=== PATIENT | male | born 1955 | race Caucasian/White ===

== ENCOUNTER 2017-01-05 10:08 | Inpatient (IN) | payer MEDICAID ==
[~2017-01-05] VITALS: Ht 172.7 cm; Wt 81.6 kg
[2017-01-05 11:08] LABS: BASOPHIL % 0.5 % (0-2); PLATELET COUNT 244 x10^3mcL (130-400); RED CELL DISTRIBUTION WIDTH 12.9 % (11.5-14.5)
[2017-01-05 11:15] LABS: CALCIUM 8.7 mg/dL (8.5-10.1); CARBON DIOXIDE 25.9 mmol/L (21-32); CHLORIDE SERUM 106 mmol/L (98-107); CREATININE SERUM 1.1 mg/dL (0.7-1.3); GFR1 > 60 mL/min; GLUCOSE SERUM 334 mg/dL (74-106); POTASSIUM SERUM 4.8 mmol/L (3.5-5.1); SODIUM SERUM 141 mmol/L (136-145)
[2017-01-05 11:20] LABS: ALKALINE PHOSPHATASE 240 U/L (46-116); ALT/SGPT 30 U/L (16-63); AST/SGOT 20 U/L (15-37); BILIRUBIN TOTAL 0.45 mg/dL (0.20-1.00); TOTAL PROTEIN, SERUM 7.5 g/dL (6.4-8.2)
[2017-01-05 11:21] LABS: ALBUMIN 3.1 g/dL (3.4-5.0)
[2017-01-05 12:58] LABS: MAGNESIUM 1.7 mg/dL (1.8-2.4); PHOSPHOROUS 3.2 mg/dL (2.5-4.9)
[2017-01-05 13:08] LABS: FREE T4 0.96 ng/dL (0.76-1.46); FREE THYROXINE INDEX 2.1 ug/dL (1.4-4.5); T3 TOTAL 0.86 ng/mL; T4(THYROXINE) 6.3 ug/dL (4.7-13.3)
[2017-01-05 13:36] VITALS: BP 144/77; BP 194/77
[2017-01-05 13:39] LABS: UA SPECIFIC GRAVITY 1.015 (1.005-1.035); microscopic required? YES; urine erythrocyte TRACE (NEGATIVE)
[2017-01-05 13:53] LABS: AMPHETAMINE QUAL UR NONE DETECTED (NEG <=1000)
[2017-01-05] MEDS ORDERED: LIPI20 PO (13:55)
[2017-01-05] MEDS ORDERED: ECO81 PO (13:56)
[2017-01-05] MEDS ORDERED: LOT10 PO (13:57)
[2017-01-05] MEDS ORDERED: GLUCOPHAGE1000 MG PO (13:59)
[2017-01-05] MEDS ORDERED: VITAMIN D PO (14:01)
[2017-01-05] MEDS ORDERED: LANTUS SOLOS100 U/M1 SC (14:02)
[2017-01-05] MEDS ORDERED: INSULIN (14:03)
[2017-01-05 15:55] VITALS: Ht 172.7 cm; Wt 81.6 kg
[2017-01-05] MEDS ORDERED: LANTUS SOLOS100 U/M1 SQ (16:01)
[2017-01-05 19:30] VITALS: BP 115/68
[2017-01-06 04:22] LABS: BASOPHIL % 0.3 % (0-2); PLATELET COUNT 219 x10^3mcL (130-400); RED CELL DISTRIBUTION WIDTH 12.9 % (11.5-14.5)
[2017-01-06 04:25] LABS: CALCIUM 8.8 mg/dL (8.5-10.1); CARBON DIOXIDE 26.9 mmol/L (21-32); CHLORIDE SERUM 104 mmol/L (98-107); GFR1 > 60 mL/min; GLUCOSE SERUM 220 mg/dL (74-106); MAGNESIUM 1.5 mg/dL (1.8-2.4); PHOSPHOROUS 3.4 mg/dL (2.5-4.9); POTASSIUM SERUM 4.9 mmol/L (3.5-5.1); SODIUM SERUM 137 mmol/L (136-145)
[2017-01-06 05:12] VITALS: BP 130/79
[2017-01-06 09:40] VITALS: BP 133/67; BP 138/70
[2017-01-06 13:17] VITALS: BP 141/74
[2017-01-06 17:50] VITALS: BP 159/87
[2017-01-06 21:16] VITALS: BP 129/70
[2017-01-07 05:02] VITALS: BP 117/71
[2017-01-07 10:06] VITALS: BP 134/83
[2017-01-07 14:23] VITALS: BP 140/71
[2017-01-07 17:55] VITALS: BP 153/76
[2017-01-07 20:49] VITALS: BP 131/74
[2017-01-08 05:24] VITALS: BP 133/76
[2017-01-08 06:22] LABS: BASOPHIL % 0.3 % (0-2); PLATELET COUNT 240 x10^3mcL (130-400)
[2017-01-08 06:23] LABS: CALCIUM 8.8 mg/dL (8.5-10.1); CARBON DIOXIDE 26.8 mmol/L (21-32); CHLORIDE SERUM 105 mmol/L (98-107); CREATININE SERUM 0.8 mg/dL (0.7-1.3); GFR1 > 60 mL/min; GLUCOSE SERUM 149 mg/dL (74-106); MAGNESIUM 1.5 mg/dL (1.8-2.4); POTASSIUM SERUM 4.2 mmol/L (3.5-5.1); SODIUM SERUM 140 mmol/L (136-145)
[2017-01-08 06:29] LABS: ALBUMIN 2.7 g/dL (3.4-5.0)
[2017-01-08 09:59] VITALS: BP 138/77
[2017-01-08 13:37] VITALS: BP 144/74
[2017-01-08 16:44] VITALS: BP 136/75
[2017-01-08 19:30] VITALS: BP 147/74
[2017-01-09 06:01] VITALS: BP 135/76
[2017-01-09 08:53] VITALS: BP 116/68
[2017-01-09 11:37] LABS: BASOPHIL % 0.7 % (0-2); PLATELET COUNT 238 x10^3mcL (130-400); RED CELL DISTRIBUTION WIDTH 13.2 % (11.5-14.5)
[2017-01-09 12:21] LABS: CALCIUM 8.5 mg/dL (8.5-10.1); CARBON DIOXIDE 29.1 mmol/L (21-32); CHLORIDE SERUM 104 mmol/L (98-107); CREATININE SERUM 0.8 mg/dL (0.7-1.3); GFR1 > 60 mL/min; GLUCOSE SERUM 139 mg/dL (74-106); POTASSIUM SERUM 4.5 mmol/L (3.5-5.1); SODIUM SERUM 139 mmol/L (136-145)
[2017-01-09 13:51] VITALS: BP 116/68
[2017-01-09 14:15] VITALS: BP 142/78
[2017-01-09] MEDS ORDERED: GLU10 PO (14:24)
[2017-01-09] MEDS ORDERED: COUMADIN7.5 MG PO (14:24)
== END 2017-01-09 17:00 | disposition home or self-care (01) | DRG 361 ==
LOC: ED 10:08 → MU 12:01 → DU 12:01
PROVIDERS: Emergency Medicine; Student in an Organized Health Care Education/Training Program; ADMIT Family Medicine
PROC: 0HBNXZZ Excision of Left Foot Skin, External Approach (ICD-10-PCS; principal; 2017-01-06)
PROC: 0JBR0ZZ Excision of Left Foot Subcutaneous Tissue and Fascia, Open Approach (ICD-10-PCS; principal; 2017-01-06)
DX: E11.621 Type 2 diabetes mellitus with foot ulcer (principal); L97.529 Non-pressure chronic ulcer of other part of left foot with unspecified severity; N17.0 Acute kidney failure with tubular necrosis; E43 Unspecified severe protein-calorie malnutrition; I82.412 Acute embolism and thrombosis of left femoral vein; L03.116 Cellulitis of left lower limb; E83.42 Hypomagnesemia; E11.65 Type 2 diabetes mellitus with hyperglycemia; E11.42 Type 2 diabetes mellitus with diabetic polyneuropathy; L84 Corns and callosities; M85.872 Other specified disorders of bone density and structure, left ankle and foot; E78.5 Hyperlipidemia, unspecified; D64.9 Anemia, unspecified; Z68.27 Body mass index [BMI] 27.0-27.9, adult; Z79.4 Long term (current) use of insulin; Z79.84 Long term (current) use of oral hypoglycemic drugs
CPT/HCPCS: 82962; 83880; 84439; 90715; 90732; J0295; J1644; J1815; J1885; J1956; J3475; J3490; J7030; Q0092

== ENCOUNTER 2017-09-25 18:09 | Inpatient (IN) | payer MEDICAID ==
[~2017-09-25] VITALS: Ht 172.7 cm; Wt 88.5 kg
[~2017-09-25 18:09] MED LIST: COUMADIN7.5 MG PO; ECO81 PO; GLU10 PO; GLUCOPHAGE1000 MG PO; INSULIN; LANTUS SOLOS100 U/M1 SC; LANTUS SOLOS100 U/M1 SQ; LIPI20 PO; LOT10 PO; VITAMIN D PO
[2017-09-25 19:01] LABS: BASOPHIL % 0.8 % (0-2); PLATELET COUNT 272 x10^3mcL (130-400)
[2017-09-25 19:09] LABS: CALCIUM 8.2 mg/dL (8.5-10.1); CARBON DIOXIDE 26.7 mmol/L (21-32); CHLORIDE SERUM 99 mmol/L (98-107); CREATININE SERUM 1.1 mg/dL (0.7-1.3); GFR1 > 60 mL/min; GLUCOSE SERUM 367 mg/dL (74-106); SODIUM SERUM 135 mmol/L (136-145)
[2017-09-25 19:13] LABS: ALKALINE PHOSPHATASE 178 U/L (46-116); ALT/SGPT 22 U/L (16-63); AMYLASE 31 U/L (25-115); AST/SGOT 13 U/L (15-37); BILIRUBIN TOTAL 0.4 mg/dL (0.20-1.00); CHOLESTEROL 173 mg/dL (<200); HDL CHOLESTEROL 37 mg/dL (40-60); LIPASE 107 IU/L (73-393); TOTAL PROTEIN, SERUM 7.2 g/dL (6.4-8.2)
[2017-09-25 20:50] LABS: CHOLESTEROL/HDL RATIO 4.6; MAGNESIUM 1.8 mg/dL (1.8-2.4); PHOSPHOROUS 3.6 mg/dL (2.5-4.9)
[2017-09-25 20:59] LABS: FREE T4 0.96 ng/dL (0.76-1.46); FREE THYROXINE INDEX 2.4 ug/dL (1.4-4.5); T4(THYROXINE) 6.9 ug/dL (4.7-13.3)
[2017-09-25 21:13] LABS: T3 TOTAL 0.73 ng/mL
[2017-09-25 21:41] VITALS: BP 146/82
[2017-09-26 05:26] VITALS: BP 147/80
[2017-09-26 06:33] LABS: microscopic required? YES; urine erythrocyte TRACE (NEGATIVE)
[2017-09-26 06:42] LABS: CALCIUM 8.1 mg/dL (8.5-10.1); CARBON DIOXIDE 24.3 mmol/L (21-32); CHLORIDE SERUM 103 mmol/L (98-107); CREATININE SERUM 0.9 mg/dL (0.7-1.3); GFR1 > 60 mL/min; GLUCOSE SERUM 349 mg/dL (74-106); MAGNESIUM 1.7 mg/dL (1.8-2.4); PHOSPHOROUS 3.1 mg/dL (2.5-4.9); POTASSIUM SERUM 3.9 mmol/L (3.5-5.1); SODIUM SERUM 133 mmol/L (136-145)
[2017-09-26 06:53] LABS: AMPHETAMINE QUAL UR NONE DETECTED (NEG <=1000)
[2017-09-26 06:54] LABS: BASOPHIL % 0.7 % (0-2); PLATELET COUNT 225 x10^3mcL (130-400); RED CELL DISTRIBUTION WIDTH 13.1 % (11.5-14.5)
[2017-09-26 08:57] VITALS: BP 140/72
[2017-09-26 12:17] VITALS: BP 136/75
[2017-09-26 17:19] VITALS: BP 148/79
[2017-09-26 21:24] VITALS: BP 153/82
[2017-09-27 05:40] VITALS: BP 126/79
[2017-09-27 06:44] LABS: BASOPHIL % 0.6 % (0-2); PLATELET COUNT 242 x10^3mcL (130-400); RED CELL DISTRIBUTION WIDTH 13.1 % (11.5-14.5)
[2017-09-27 07:01] LABS: CALCIUM 8.4 mg/dL (8.5-10.1); CARBON DIOXIDE 28.2 mmol/L (21-32); CHLORIDE SERUM 106 mmol/L (98-107); CREATININE SERUM 0.9 mg/dL (0.7-1.3); GFR1 > 60 mL/min; GLUCOSE SERUM 126 mg/dL (74-106); PHOSPHOROUS 3.5 mg/dL (2.5-4.9); POTASSIUM SERUM 4.5 mmol/L (3.5-5.1); SODIUM SERUM 141 mmol/L (136-145)
[2017-09-27 07:07] LABS: MAGNESIUM 1.7 mg/dL (1.8-2.4)
[2017-09-27 09:46] VITALS: BP 153/88
[2017-09-27 16:54] VITALS: BP 177/95
[2017-09-27 18:02] VITALS: BP 156/76
[2017-09-27 21:21] VITALS: BP 126/74
[2017-09-28 06:26] LABS: BASOPHIL % 0.6 % (0-2); CALCIUM 8.3 mg/dL (8.5-10.1); CARBON DIOXIDE 28.5 mmol/L (21-32); CHLORIDE SERUM 103 mmol/L (98-107); CREATININE SERUM 0.9 mg/dL (0.7-1.3); GFR1 > 60 mL/min; GLUCOSE SERUM 123 mg/dL (74-106); MAGNESIUM 1.8 mg/dL (1.8-2.4); PHOSPHOROUS 3.9 mg/dL (2.5-4.9); PLATELET COUNT 252 x10^3mcL (130-400); POTASSIUM SERUM 3.8 mmol/L (3.5-5.1); RED CELL DISTRIBUTION WIDTH 13.5 % (11.5-14.5); SODIUM SERUM 135 mmol/L (136-145)
[2017-09-28 06:42] VITALS: BP 122/71
== END 2017-09-28 10:32 | disposition left against medical advice (07) | DRG 344 ==
LOC: ED 18:09 → DU 20:10 → MU 20:10 → DU 21:31 → MU 09-26 07:08
PROVIDERS: Emergency Medicine; Family Medicine
DX: E11.69 Type 2 diabetes mellitus with other specified complication (principal); M86.172 Other acute osteomyelitis, left ankle and foot; N17.0 Acute kidney failure with tubular necrosis; E11.621 Type 2 diabetes mellitus with foot ulcer; E44.0 Moderate protein-calorie malnutrition; E11.51 Type 2 diabetes mellitus with diabetic peripheral angiopathy without gangrene; E87.1 Hypo-osmolality and hyponatremia; B35.1 Tinea unguium; E11.65 Type 2 diabetes mellitus with hyperglycemia; E83.42 Hypomagnesemia; L97.526 Non-pressure chronic ulcer of other part of left foot with bone involvement without evidence of necrosis; B95.61 Methicillin susceptible Staphylococcus aureus infection as the cause of diseases classified elsewhere; B96.4 Proteus (mirabilis) (morganii) as the cause of diseases classified elsewhere; I10 Essential (primary) hypertension; E78.00 Pure hypercholesterolemia, unspecified; Z86.718 Personal history of other venous thrombosis and embolism; Z79.01 Long term (current) use of anticoagulants; Z79.82 Long term (current) use of aspirin; Z79.4 Long term (current) use of insulin; Z87.891 Personal history of nicotine dependence; Z68.29 Body mass index [BMI] 29.0-29.9, adult; Z53.29 Procedure and treatment not carried out because of patient's decision for other reasons
CPT/HCPCS: 82962; 83880; 84439; 90715; C1751; J0295; J0360; J1642; J1644; J1815; J2060; J3475; J3490; J7030; J7050; Q0092